=== PATIENT | female | born 1980 | race Caucasian/White ===

== ENCOUNTER → 2016-07-08 | Outpatient (CLI) | payer BC | LOC: RAD 13:02 | PROVIDERS: ATTEND Family Medicine | DX: O24.913 Unspecified diabetes mellitus in pregnancy, third trimester (principal); Z3A.30 30 weeks gestation of pregnancy | CPT/HCPCS: 76805 ==

== ENCOUNTER → 2016-08-04 | Outpatient (CLI) | payer BC ==
[~2016-08-04] MED LIST: CODE-54 PO; IBP200T PO; METF1000 PO; METF500T4 PO; PNV91TAB3 PO
--- NOTE | 2016-08-04 18:04 | Diagnostic Imaging Report ---
INDICATION: Type 2 diabetes. FINDINGS: Real-time imaging shows uterus to be active. breathing was demonstrated. Gross body movement was normal. tone is normal. Amniotic fluid index is normal. IMPRESSION: Normal biophysical profile scoring 8 of potential 8 points. Dictated by: Dictated on workstation # [id number]
--- NOTE | 2016-08-04 18:10 | Diagnostic Imaging Report ---
INDICATION: OB ultrasound. FINDINGS: There is a single live intrauterine fetus in vertex presentation. Placenta is anterior with no evidence of abruption or previa. Amniotic fluid index is 15 cm. heart rate 139 beats per minute. biometric measurements are BPD 9.42 cm, head circumference 32.47 cm, abdominal circumference 29.93 cm, femur length 7.19 cm. Estimated weight is 2684 g +/-392 g. No abnormalities are demonstrated though the detail is limited due to the late trimester age. IMPRESSION: 1. LMP Gestational age of 33 weeks 5 days. Ultrasound estimated age of 36 weeks [address] days[address] the fetus in the 90th percentile for growth. Dictated by: Dictated on workstation # [id number]
== END ==
LOC: RAD 13:57
PROVIDERS: ATTEND Family Medicine
DX: Z34.93 Encounter for supervision of normal pregnancy, unspecified, third trimester (principal); E11.9 Type 2 diabetes mellitus without complications; Z3A.33 33 weeks gestation of pregnancy
CPT/HCPCS: 76805; 76819

== ENCOUNTER 2016-08-28 22:57 | Outpatient (CLI) | payer BC ==
[~2016-08-28] VITALS: Ht 170.2 cm; Wt 104.5 kg
[2016-08-28] MEDS ORDERED: INSU100V5 SC (23:50)
[2016-08-28] MEDS ORDERED: HUM100VI SC (23:51)
[2016-08-28 23:52] VITALS: BP 152/73
[2016-08-28 23:54] VITALS: BP 152/73
[2016-08-29 00:25] VITALS: BP 133/71
== END 2016-08-29 00:30 | disposition home or self-care (01) ==
LOC: EUOP 22:57 → OB 22:58 → EUOP 08-29 00:30
PROVIDERS: ATTEND Family Medicine
DX: O60.03 Preterm labor without delivery, third trimester (principal); Z3A.37 37 weeks gestation of pregnancy
CPT/HCPCS: 99203

== ENCOUNTER 2016-08-31 22:35 | Outpatient (CLI) | payer BC ==
[~2016-08-31] VITALS: Ht 170.2 cm; Wt 104.5 kg
--- OUTSIDE RECORDS SUMMARY | 2016-08-31 23:03 | XMS REPORT | Continuity of Care Document ---
Author Author [facility] Address Unknown Phone Unavailable Care Team Providers Care Housekeeping Supervisor Name Role Phone GARRICKDEREK MD PCP [phone] Insurance Providers Payer Name Policy Number Subscriber Name Relationship [facility] [id number] Endy Hyde 18 Self / Same As Patient Advance Directives Directive Response Recorded Date/Time Advanced Directives Not applicable 02/06/16 9:34am Problems Active Problems Medical Problem Onset Date Status 37 or more completed weeks of gestation Unknown Acute Flank pain 09/11/2012 Chronic Postcoital bleeding 02/06/2016 Acute 02/06/2016 Acute contractions Unknown Acute Vaginal bleeding 02/06/2016 Acute Medications Current Home Medications Medication Dose Units Route Directions Days/Qty Instructions Start Date Pnv95/Ferrous Fumarate/Fa 1 Each 1 Each ORAL Daily 02/06/16 Metformin Hcl (Glucophage) 1,000 Mg 1,000 Mg ORAL Daily 02/06/16 Metformin Hcl (Glucophage) 500 Mg 500 Mg ORAL Daily 02/06/16 Insulin Detemir (Insulin Levemir) 100 Unit/1 Ml 24 Unit SUBCUTANEOUS Once 08/28/16 Insulin Human Isoph/Insulin Regular 100 Unit/1 Ml 10 Unit SUBCUTANEOUS Once 08/28/16 Past Home Medications Medication Directions Ordered Status Ibuprofen (Motrin) 200 Mg Tablet, 3 Tab Oral Every 6 Hr On Schedule 09/07/12 Discontinued Acetaminophen/Codeine 1 Tab Tablet, 1 Tab Oral Every 6 Hours 09/07/12 Discontinued Social History Query Response Start Date Stop Date Smoking Status Former smoker Hospital Discharge Instructions No hospital discharge instructions. Plan of Care Discharge Date 08/29/16 12:30am Prescriptions See Medication Section Functional Status No functional status results. Allergies, Adverse Reactions, Alerts No known allergies. Immunizations No immunization records. Vital Signs Acute Vital Signs Vital Response Date/Time Temperature (Fahrenheit) 97.0 08/29/2016 12:25am Pulse 66 bpm 08/29/2016 12:25am Respirations 16 08/29/2016 12:25am Height 5 ft 7 in Weight 230 lb Body Mass Index 36.0 kg/m^2 Results No known relevant diagnostic tests, laboratory data and/or discharge summary. Procedures Procedure Status Date Provider(s) OB US >/=14 WKS SNGL FETUS Completed 08/04/16 BIOPHYS PROFIL W/O NST Completed 08/04/16 Encounters Encounter Location Arrival/Admit Date Discharge/Depart Date Attending Provider Departed Clinic [facility] 08/28/16 10:57pm 08/29/16 12:30am DEVIN ESCALANTE MD Registered Clinic [facility] 08/04/16 1:57pm DEVIN ESCALANTE MD Recent Diagnosis contractions Vaginal bleeding
[2016-08-31 23:20] VITALS: BP 136/64
[2016-08-31 23:54] VITALS: BP 136/64
== END 2016-08-31 23:50 | disposition home or self-care (01) ==
LOC: EDSTATUS 22:38 → EUOP 22:40 → OB 22:40 → EUOP 23:50
PROVIDERS: ATTEND Family Medicine
DX: O09.523 Supervision of elderly multigravida, third trimester (principal); Z3A.37 37 weeks gestation of pregnancy
CPT/HCPCS: 99202

== ENCOUNTER → 2016-08-31 | Outpatient (CLI) | payer BC ==
[~2016-08-31] MED LIST changes: +HUM100VI SC; +INSU100V5 SC
--- NOTE | 2016-08-31 10:23 | Diagnostic Imaging Report ---
INDICATION: Gestational diabetes. COMPARISON: Biophysical profile from 08/04/2016. Biophysical Profile Score: Movement: 2 Breathin Tone: 2 Fluid: 2 Total: 11/22 Heart Rate: 163 BPM Presentation is cephalic. Placenta is anterior. GINETTE is 11 cm. The single largest vertical pocket is 4 cm. IMPRESSION: Normal Biophysical Profile Score. Dictated by: Dictated on workstation # [id number]
--- NOTE | 2016-08-31 10:26 | Diagnostic Imaging Report ---
INDICATION: Gestational diabetes. Evaluate for growth. TECHNIQUE: Multiple real-time grayscale images were obtained over the gravid uterus. COMPARISON: 08/04/2016 FINDINGS: There is a single live intrauterine with heart rate of 155 beats per minute. Fetus is in cephalic presentation. Average ultrasound age by biparietal diameter, head circumference, abdominal circumference and femoral length is 38 weeks and 2 days. Estimated weight is 3372 g. Compared to ultrasound of three weeks prior, there has been appropriate interval growth allowing for the degree of standard deviation. IMPRESSION: 1. Single live intrauterine with heart rate of 155 beats per minute. 2. Average ultrasound age (38 weeks and 2 days) is within the margin of air compared to gestational age by LMP (37 weeks and 4 days). Dictated by: Dictated on workstation # [id number]
== END ==
LOC: RAD 08:38
PROVIDERS: ATTEND Family Medicine
DX: O24.419 Gestational diabetes mellitus in pregnancy, unspecified control (principal); Z3A.38 38 weeks gestation of pregnancy
CPT/HCPCS: 76805; 76819

== ENCOUNTER 2016-09-04 19:42 | Inpatient (IN) | payer BC ==
[~2016-09-04] VITALS: Ht 170.2 cm; Wt 104.5 kg
--- OUTSIDE RECORDS SUMMARY | 2016-09-04 19:49 | XMS REPORT | Continuity of Care Document ---
Author Author [facility] Address Unknown Phone Unavailable Care Team Providers Care Online Marketer Name Role Phone GARRICKDEREK MD PCP [phone] Insurance Providers Payer Name Policy Number Subscriber Name Relationship [facility] [id number] Endy Hyde 18 Self / Same As [...] discharge instructions. Plan of Care Discharge Date 08/31/16 11:50pm Prescriptions See Medication Section Functional Status No functional status results. Allergies, Adverse Reactions, Alerts No known allergies. Immunizations No immunization records. Vital Signs Acute Vital Signs Vital Response Date/Time Temperature (Fahrenheit) 98.7 08/31/2016 11:54pm Pulse 84 bpm 08/31/2016 11:54pm Respirations 16 08/31/2016 11:54pm Height 5 ft 7 in Weight 230 lb Body Mass Index 36.0 kg/m^2 Results No known relevant diagnostic tests, laboratory data and/or discharge summary. Procedures Procedure Status Date Provider(s) OB US >/=14 WKS SNGL FETUS Completed 08/04/16 BIOPHYS PROFIL W/O NST Completed 08/04/16 OFFICE/OUTPATIENT VISIT NEW Completed 08/28/16 Encounters Encounter Location Arrival/Admit Date Discharge/Depart Date Attending Provider Departed [facility] 08/31/16 10:40pm 08/31/16 11:50pm DEVIN ESCALANTE MD Registered [facility] 08/31/16 8:38am DEVIN ESCALANTE MD Departed [facility] 08/28/16 10:57pm 08/29/16 12:30am DEVIN ESCALANTE MD Registered [facility] 08/04/16 1:57pm DEVIN ESCALANTE MD
[2016-09-04] MEDS ORDERED: CALCIUM CARBONATE CHEWABLE 300 MG (TUMS) TABLET PO PRN (19:55)
[2016-09-04] MEDS ORDERED: SODIUM CHLORIDE IV SCH (19:55)
[2016-09-04] MEDS ORDERED: INSULIN REGULAR IV SCH (19:55)
[2016-09-04] MEDS ORDERED: MISOPROSTOL 25 MCG (CYTOTEC) TABLET PV SCH (19:55)
[2016-09-04] MEDS ORDERED: LIDOCAINE PF 1% (XYLOCAINE) 2 ML VIAL INJ ONE (20:08)
[2016-09-04] MEDS ORDERED: SODIUM CHLORIDE FLUSH 10 ML ONE (20:08)
[2016-09-04] MEDS ORDERED: COMPOUNDED BY PHARMACY 1 EACH ONE (20:25)
[2016-09-04] MEDS ORDERED: D5LR 1,000 ML IV ONE (20:26)
[2016-09-04 20:40] VITALS: BP 128/78
[2016-09-04 20:46] LABS: MEAN CORPUSCULAR HEMOGLOBIN 30.6 PG (26.0-34.0); MEAN CORPUSCULAR HGB CONC 34.5 g/dL (31.0-37.0); MEAN PLATELET VOLUME 10.3 FL (6.0-9.5); WHITE BLOOD COUNT 9.76 10^3uL (4.0-11.0)
[2016-09-04 21:00] VITALS: BP 128/78
[2016-09-04 22:30] VITALS: BP 126/70
[2016-09-04 23:00] VITALS: BP 132/76
[2016-09-04 23:30] VITALS: BP 130/77
[2016-09-05] VITALS (47 sets, daily range): BP systolic 105–145; BP diastolic 51–79
[2016-09-05] MEDS ORDERED: D5LR 1,000 ML IV ONE (04:26)
[2016-09-05] MEDS: OXYTOCIN INJ 20 UNIT in NS 1000ml 1,000 ML IV PRN ×3 (06:15→18:00)
[2016-09-05] MEDS ORDERED: OXYTOCIN INJ 20 UNIT in NS 1000ml 1,000 ML SCH (07:20)
[2016-09-05] MEDS ORDERED: OXYTOCIN INJ 20 UNIT in NS 1000ml 1,000 ML IV SCH ×2 (07:48→14:00)
--- NOTE | 2016-09-05 08:18 | History and Physical (E) ---
History & Physical (OB) Subjective: CC: induction 36 year old at 38 2/7 presents for induction secondary to type II diabetes. She was diagnosed with diabetes last summer before becoming , and placed on metformin, with good A1C control. After becoming , blood sugars were followed, and she was started on Levemir, and then Humalog, for tighter control. She has never had all sugars within range, but they have usually been with 10-20 mg/dl of goal. She has had weekly BPPs since 32 weeks that have been normal. Last growth scan last week showed weight of 3372 grams. She has had a few mildly elevated BPs in the office, but has been normotensive since admission with one exception. PNC: [facility] Hx: term x4, SAB x1 PMHx: DM2, history of GDM and PIH PSHx: none Allergies: Coded Allergies: No Known Drug Allergies (Unverified , 02/06/16) Home Medications: Reported Medications Hum Insulin NPH/Reg Insulin Hm (Humulin 70/30)100 Unit/1 Ml Vial10 Unit SC ONCE 08/28/16 Insulin Detemir (Levemir)100 Unit/1 Ml Vial24 Unit SC ONCE 08/28/16 Metformin HCl 500 Mg [id number] Mg PO DAILY 02/06/16 Metformin HCl 1,000 Mg Tablet1,000 Mg PO DAILY 02/06/16 Pnv95/Ferrous Fumarate/FA ( Caplet)1 Each Tablet1 Each PO DAILY 02/06/16 Objective: Vital Signs Date Time Temp Pulse Resp B/P Pulse Ox O2 Delivery O2 Flow Rate FiO2 09/05/16 07:00 58 117/61 09/05/16 04:00 97.6 09/05/16 01:00 16 Laboratory Results Past 24 Hrs 09/04/16 20:15: Hematocrit 36.20, Hemoglobin 12.5, Mean Corpuscular Hemoglobin 30.6, Mean Corpuscular Hemoglobin Concent 34.5, Mean Corpuscular Volume 89, Mean Platelet Volume 10.3, Platelet Count 232, Red Blood Count 4.08, Red Cell Distribution Width 14.2, White Blood Count 9.76 General: Alert and oriented, NAD Chest: CTA Abdomen: Gravid Cardiovasular: RRR, No murmur Extremities: No edema FHT's: 130s, Cat I. Cvx: 4/50/-3 [place]: Q4min Screenings: Blood type: A Positive, Rubella Immune, RPR non-reactive, HBV Negative, HIV Negative , GBS Negative. Problems/Plans: (1) 38 weeks gestation of Assessment & Plan: Inducing today due to uncontrolled blood sugars and insulin use. 2 doses of cytotec placed overnight and pitocin started at 0600. AROM performed with clear fluid returned. Continue with pitocin titration to effective contractions. (2) Diabetes mellitus affecting Assessment & Plan: Accuchecks have been good so far. Insulin if needed. Plan to check fasting blood sugar after delivery, and if ok, will continue on metformin only, and check A1C at visit. (3) Advanced maternal age (AMA) in (4) Request for sterilization Assessment & Plan: Will proceed with tubal after delivery. Additional Copies to: End of Report . DEVIN ESCALANTE MD September 05, 2016 08:18
[2016-09-05] MEDS ORDERED: LIDOCAINE 2% (XYLOCAINE) 20 ML VIAL INJ SCH (13:30)
[2016-09-05] MEDS ORDERED: LIDOCAINE PF 1% (XYLOCAINE) 2 ML VIAL INJ ONE (13:32)
[2016-09-05] MEDS ORDERED: LIDOCAINE 1% (XYLOCAINE) 20 ML VIAL ONE (13:33)
[2016-09-05] MEDS ORDERED: HYDROcodone/APAP 5 MG/325 MG (NORCO) TAB PO PRN (13:50)
[2016-09-05] MEDS ORDERED: LANOLIN OINTMENT 28 GM TUBE TOP PRN (13:50)
[2016-09-05] MEDS ORDERED: IBUPROFEN 600 MG (MOTRIN) TAB PO PRN (13:50)
[2016-09-05] MEDS ORDERED: IBUPROFEN 600 MG (MOTRIN) TAB PO ONE (15:18)
[2016-09-05] MEDS: IBUPROFEN 600 MG (MOTRIN) TAB PO PRN ×2 (15:25→20:49)
[2016-09-05] MEDS: DOCUSATE SODIUM 100 MG (COLACE) CAP PO SCH (20:49)
[2016-09-05] MEDS ORDERED: DOCUSATE SODIUM 100 MG (COLACE) CAP PO SCH (21:00)
[2016-09-06] VITALS (8 sets, daily range): BP systolic 110–145; BP diastolic 58–78
[2016-09-06] MEDS: IBUPROFEN 600 MG (MOTRIN) TAB PO PRN ×2 (04:30→17:27)
[2016-09-06] MEDS ORDERED: ceFAZolin 2,000 MG in SODIUM CHLORIDE 100 ML IV ONE ×5 (06:00→11:35)
[2016-09-06 07:13] LABS: MEAN CORPUSCULAR HEMOGLOBIN 30.3 PG (26.0-34.0); MEAN PLATELET VOLUME 9.8 FL (6.0-9.5); WHITE BLOOD COUNT 9.54 10^3uL (4.0-11.0)
[2016-09-06] MEDS ORDERED: SODIUM CHLORIDE FLUSH 10 ML ONE (08:59)
[2016-09-06] MEDS ORDERED: BUPIVACAINE/EPINEPHRINE 0.5%-1:200,000 (MARCAINE) 30 ML VIAL INJ ONE (09:26)
[2016-09-06] MEDS ORDERED: SODIUM CHLORIDE FLUSH 3 ML SYR IV PRN (10:30)
[2016-09-06] MEDS ORDERED: SODIUM CHLORIDE FLUSH 10 ML SYR IV PRN (10:30)
[2016-09-06] MEDS ORDERED: PROPOFOL 20 ML IV ONE (12:03)
[2016-09-06] MEDS ORDERED: SUCCINYLCHOLINE 20 MG/ML 10 ML VIAL ONE (12:03)
[2016-09-06] MEDS ORDERED: NALBUPHINE 10 MG/ML (NUBAIN) 1 ML AMP ONE (12:05)
[2016-09-06] MEDS ORDERED: METOCLOPRAMIDE 10 MG/2 ML (REGLAN) VIAL ONE (12:09)
--- NOTE | 2016-09-06 12:22 | History and Physical (E) ---
OB History & Physical Update S: Doing well. Ambulating, voiding. Pain controlled. Lochia moderate. Nursing is going a little slow. O: Laboratory Results Past 24 Hrs 09/06/16 07:05: Hematocrit 31.80, Hemoglobin 10.8, Mean Corpuscular Hemoglobin 30.3, Mean Corpuscular Hemoglobin Concent 34.0, Mean Corpuscular Volume 89, Mean Platelet Volume 9.8, Platelet Count 196, Red Blood Count 3.57, Red Cell Distribution Width 14.3, White Blood Count 9.54 Vital Signs Date Time Temp Pulse Resp B/P Pulse Ox O2 Delivery O2 Flow Rate FiO2 09/06/16 08:10 97.4 65 16 116/64 97 Room air Gen: A&O, NAD CV: RRR Lungs: CTAB Abd: soft, non-tender, fundus firm Ext: no edema A: Problems: Medical Problems: (1) (2) Diabetes mellitus affecting (3) Request for sterilization P: Will proceed with tubal ligation. Risks and benefits reviewed. Had one blood sugar yesterday of 165, fasting this morning 92, and 86. Continue to monitor. Will likely hold metformin, and check A1C at 6 week PP. Likely discharge tomorrow. DEVIN ESCALANTE MD September 06, 2016 12:21
--- NOTE | 2016-09-06 12:31 | Vaginal Delivery Summary (E) ---
Vaginal Delivery Summary At 13: on 09/05/16 this 36 year old G 6 now P5 spontaneously delivered a viable female infant at 38.2 weeks gestation. The patient presented for care at 5 weeks. Ultrasound at 7 weeks confirmed dates. This complications: type II diabetes, AMA, first trimester bleeding Maternal labs: Blood type: A Positive, Rubella Immune, RPR non-reactive, HBV Negative, HIV Negative , GBS Negative. Tdap booster received on 07/29/16. Flu booster received on 03/18/16. She presented for induction secondary to insulin-dependent diabetes. At presentation, she was 2 cm dilated. She received 3 doses of cytotec overnight. Pitocin was started at 0600. At 08:12, AROM was performed by Dr Leigh with Clear fluid returned. She progressed to complete at 13:00 and pushed for about 5 minutes. The head presented occiput anterior and delivered easily, followed by the anterior shoulder. There was a loose nuchal cord that was not reduced. The posterior shoulder and the body followed in a controlled fashion and baby was placed on mom's abdomen. The cord was allowed to stop pulsing and then clamped x2 by me and cut by father of the baby. The placenta then delivered spontaneously and intact, with 3 vessel cord noted. The pitocin bag was run in. A minor 1st degree laceration was repaired with a running, locking suture of 3- 0 Vicryl. There were no other lacerations. There was brisk bleeding, so a MEU was done with placental fragments returned. Bleeding then slowed. Estimated blood loss 450 ml. weight: 7 pounds, 5.0 ounces, 3310 grams. Apgars: 8 at 1 minute, 9 at 5 minutes, and 9 at 10 minutes. Both mom and baby are stable at this time. DEVIN LEIGH MD September 05, 2016 14:01
[2016-09-06] MEDS ORDERED: ePHEDrine SULFATE 50 MG/ML 1 ML AMP ONE (13:00)
--- NOTE | 2016-09-06 13:14 | Operative Report (E) ---
Operative Report (E) 09/06/16 12:32 Pre-Operative Diagnosis: 1. Desire for permanent sterilization 2. Type II diabetes 3. Advanced maternal age Post-Operative Diagnosis: Same Procedure: bilateral tubal ligation Surgeon: Chace Leigh MD Judo Teacher: none Anesthesia: General EBL: >10ml Findings: Normal uterus, tubes and ovaries Description of Procedure Patient was taken to the operating room and general anesthesia undertaken. She was prepped and draped in the usual sterile fashion. Timeout was performed. 20ml of 0.5% marcaine was instilled along the intended insertion site. A curvilinear incision was made below the umbilicus. The incision was taken down to fascia with cautery. The abdomen was then entered bluntly. The left tube was identified, and followed to the fimbriae. It was elevated with Sg clamp, then ligated in a Chama fashion. It was then transected and the ends cauterized. It was returned to the abdominal cavity and found to be hemostatic. The same was then done with the right tube. Both were submitted to pathology. The fascia was then closed with a running non-locking suture of 0 Vicryl. The subcutaneous tissue was then reapproximated with a running non-locking suture of 2-0 Vicryl. The skin was then closed with a subcutaneous suture of 4-0 Vicryl. The incision was dressed with steristrips and bandage. Patient was returned to the postoperative room in stable condition. DEVIN LEIGH MD September 06, 2016 12:33
[2016-09-06] MEDS ORDERED: LANOLIN OINTMENT 28 GM TUBE TOP PRN (13:50)
[2016-09-06] MEDS: HYDROcodone/APAP 5 MG/325 MG (NORCO) TAB PO PRN (19:08)
[2016-09-06] MEDS: DOCUSATE SODIUM 100 MG (COLACE) CAP PO SCH (21:23)
[2016-09-07] MEDS: HYDROcodone/APAP 5 MG/325 MG (NORCO) TAB PO PRN ×2 (02:09→06:26)
[2016-09-07] MEDS: IBUPROFEN 600 MG (MOTRIN) TAB PO PRN ×2 (05:30→11:44)
--- NOTE | 2016-09-07 09:00 | NUR ---
Pt's incision site has a large adhesive bandage on it. There is some dried brown drainage seen through the pad of the bandage. (approx 3 cm by 1 cm) Pt states that she only has pain when changing from sitting to standing position or vice versa.
[2016-09-07 09:05] VITALS: BP 126/68
--- NOTE | 2016-09-07 10:20 | NUR ---
Pt showered and removed bandage from abdomen. She tolerated it well.
[2016-09-07] MEDS ORDERED: HYDR-33 PO (13:10)
[2016-09-07] MEDS ORDERED: IBUP-1772 PO (13:10)
--- NOTE | 2016-09-07 13:19 | Discharge Summary (E) ---
Discharge Summary (E) Admit Date/Time September 04, 2016 at 19:46 Discharge Date/Time September 07, 2016 at 13:10 Admitting Provider Pennie Leigh MD Primary Care Provider Jose Jefferson MD Attending Provider Pennie Leihg MD Consulting Provider Procedures tubal ligation Admission Diagnosis Problems: Medical Problems: (1) 38 weeks gestation of (2) Advanced maternal age (AMA) in (3) Diabetes mellitus affecting (4) Elective induction of labor planned (5) Request for sterilization History and Present Illness See History and Physical for complete details. Hospital Course and Treatment at 09/05 without complications. PPTL on 09/06 without complications. Today patient is ambulating, voiding, had BM, tolerating full diet, pain controlled, nursing going well. BS have been higher, so will discharge on metformin as she was before . Laboratory/Radiology Data Laboratory Results Past 5 Days 09/04/16 20:15: Hematocrit 36.20, Hemoglobin 12.5, Mean Corpuscular Hemoglobin 30.6, Mean Corpuscular Hemoglobin Concent 34.5, Mean Corpuscular Volume 89, Mean Platelet Volume 10.3H, Platelet Count 232, Red Blood Count 4.08, Red Cell Distribution Width 14.2, White Blood Count 9.76 09/06/16 07:05: Hematocrit 31.80L, Hemoglobin 10.8L, Mean Corpuscular Hemoglobin 30.3, Mean Corpuscular Hemoglobin Concent 34.0, Mean Corpuscular Volume 89, Mean Platelet Volume 9.8H, Platelet Count 196, Red Blood Count 3.57L, Red Cell Distribution Width 14.3, White Blood Count 9.54 Discharge Disposition To home Instructions Do not lift greater than 10 pounds for 2 weeks. Do not submerge incision until healed. No not drive while on narcotics (hydrocodone). Continue taking stool softener (docusate) while on narcotics. Discharge Diet: Regular Discharge Medications New Medications: Hydrocodone/Acetaminophen (ED- Rogers 5/325mg #6) 6 Tabs/Btl Tablet 1-2 TAB PO Q4H PRN Pain/Cramping #10 TAB Ibuprofen (Ibuprofen) 600 Mg Tablet 600 MG PO Q6H PRN PAIN #20 TAB Continued Medications: Metformin HCl (Metformin HCl) 1,000 Mg Tablet 1000 MG PO DAILY TAB Pnv95/Ferrous Fumarate/FA ( Caplet) 1 Each Tablet 1 EACH PO DAILY TAB Discontinued Medications: Hum Insulin NPH/Reg Insulin Hm (Humulin 70/30) 100 Unit/1 Ml Vial 10 UNIT SC ONCE VIAL Insulin Detemir (Levemir) 100 Unit/1 Ml Vial 24 UNIT SC ONCE VIAL Metformin HCl (Metformin HCl) 500 Mg Tablet 500 MG PO DAILY TAB Follow up Follow up Referrals: Family Practice @ [facility] @ [facility] Discharge Diagnosis Problems: Medical Problems: (1) 38 weeks gestation of (2) Advanced maternal age (AMA) in (3) Diabetes mellitus affecting (4) Elective induction of labor planned (5) Request for sterilization Problems: Copies to: End of Report . PENNIE LEIGH MD September 07, 2016 13:19
[2016-09-07] MEDS ORDERED: METF1000 PO (13:20)
--- NOTE | 2016-09-07 15:34 | NUR ---
1500 Pt discharged in good condition. Discharge teaching/instructions reviewed with pt, who denies questions at this time. Advised her to call any time if she does have questions. security bands collected and matched. 1530 Pt ambulates, accompanied by this RN, while family carries baby, secured in car seat to the front entrance of the hospital, where the infant's seat is secured into it's base. The family leaves via private vehicle.
== END 2016-09-07 15:30 | disposition home or self-care (01) | DRG 767 ==
LOC: OB 19:46
PROVIDERS: ADMIT Family Medicine; ATTEND Family Medicine
PROC: 3E0P7GC Introduction of Other Therapeutic Substance into Female Reproductive, Via Natural or Artificial Opening (ICD-10-PCS; principal; 2016-09-04)
PROC: 10E0XZZ Delivery of Products of Conception, External Approach (ICD-10-PCS; 2016-09-05)
PROC: 0HQ9XZZ Repair Perineum Skin, External Approach (ICD-10-PCS; 2016-09-05)
PROC: 0UB70ZZ Excision of Bilateral Fallopian Tubes, Open Approach (ICD-10-PCS; 2016-09-06)
DX: O24.12 Pre-existing type 2 diabetes mellitus, in childbirth (principal); E11.9 Type 2 diabetes mellitus without complications; Z30.2 Encounter for sterilization; O69.81X0 Labor and delivery complicated by cord around neck, without compression, not applicable or unspecified; O70.0 First degree perineal laceration during delivery; Z79.84 Long term (current) use of oral hypoglycemic drugs; Z3A.38 38 weeks gestation of pregnancy; Z37.0 Single live birth
CPT/HCPCS: 36415; 85027; 86850; 86900; 86901